=== PATIENT | female | born 1960 | race Caucasian/White ===

== ENCOUNTER 2022-03-09 17:10 | Emergency (ER) | payer SELFPAY ==
[2022-03-09] MEDS ORDERED: Sodium Chloride 0.9% 1000 ML 1,000 ML IV STA (17:32)
[2022-03-09 17:57] LABS: Absolute Neutrophil Ct (ANC) 1.61 x10^3/uL (1.4-6.9); Basophil (Absolute #) 0.03 x10^3/uL (0-0.4); Eosinophil % 4.5 % (0.00-5.0); Eosinophil (Absolute #) 0.22 x10^3/uL (0-0.5); Lymphocyte (Absolute #) 2.39 x10^3/uL (1.0-4.6); Lymphocytes % 48.5 % (24.0-44.0); Mean Cell Volume 102.9 fL (78-100); Mean Corpuscular Hemoglobin 33.5 pg (26-32); Mean Corpuscular Hgb Concent. 32.6 g/dL (32-36); Mean Platelet Volume 9.5 fL (7.5-11.0); Monocyte (Absolute #) 0.67 x10^3/uL (0.0-1.3); Monocytes % 13.6 % (0.0-12.0); Neutrophil % 32.6 % (36.0-66.0); Platelet Count 311 x10^3/uL (150-450); Red Blood Count 4.18 x10^6/uL (4.1-5.4); Red Cell Distribution Width 14.6 % (11.5-14.0); White Blood Count 4.9 x10^3/uL (4.0-10.5)
[2022-03-09 18:23] LABS: ALBUMIN 4.7 g/dL (3.5-5.0); ALKALINE PHOSPHATASE 108 U/L (38-126); AMYLASE 60 U/L (30-110); BLOOD UREA NITROGEN 15 mg/dL (7-17); CHLORIDE 108 mmol/L (98-107); Calcium 8.3 mg/dL (8.4-10.2); Carbon Dioxide 31 mmol/L (22-30); Creatinine 1 0.82 mg/dL (0.52-1.04); EST GLOMERULAR FILTRATION RATE > 60.0 ML/MIN; ETHYL ALCOHOL 383 mg/dL (0-10); Glucose 86 mg/dL (74-106); LIPASE 85 U/L (23-300); MAGNESIUM 2.2 mg/dL (1.6-2.3); NT PRO BNP 629 pg/mL (0-900); Potassium 4.3 mmol/L (3.5-5.1); SGOT/AST 29 U/L (14-36); SGPT/ALT 16 U/L (0-35); SODIUM 146 mmol/L (137-145); TROPONIN < 0.012 ng/mL (0.000-0.034); Total Protein 8.1 g/dL (6.3-8.2)
--- NOTE | 2022-03-09 18:23 | ERPHSYRPT ---
- History of Present Illness Time Seen by Provider: 03/09/22 18:19 Source: patient, EMS Patient Subjective Stated Complaint: PT BROUGHT IN BY AMBULANCE FOR FALL AT HOME TODAY. PT STATES HER A FIB IS ACTING UP , SHE HAS RECENTLY MOVED HERE AND LIVING WITH FAMILY Triage Nursing Assessment: PT ALERT, BUT CONFUSED TO EVENTS, SPEECH SLURRED, SHE STATES SHE ONLY HAD ONE GLASS OF WINE, SHE STATES SHE GOT DIZZY AND SAT ON FLOOR TODAY, SHE IS UNCOOPERATIVE, AND ONT HET UN DRESSED, SHE WAS IN CONT OF STOOL AND HAVING A HARD TIME GETTING PT TO GET UPDRESSED AND CLEANED UP . LEGS SWOLLEN Physician History: Patient is 61-year-old female with significant past medical history of atrial fibrillation hypertension, patient recently moved from [place] to [place]. Patient had a fall and then patient developed slurred speech. Patient is unable to give proper history as patient has also some confusion. No apparent injury visible due to fall. Patient is constantly asking to fix her atrial fibrillation so that she can go home. On the rhythm monitor patient has A. fib with controlled rate around 87. Timing/Duration: today Associated Symptoms: denies symptoms Allergies/Adverse Reactions: Penicillins Allergy (Verified 03/09/22 17:20) Home Medications: Amiodarone HCl 200 mg [Cordarone 200 MG] 200 mg PO DAILY 03/09/22 [History] Apixaban [Eliquis 5 mg Tablet] 5 mg PO BID 03/09/22 [History] Atorvastatin Calcium [Lipitor] 20 mg PO DAILY 03/09/22 [History] Metoprolol Tartrate 25 mg [Lopressor 25MG Tab] 25 mg PO BID 03/09/22 [History] Sertraline HCl 50 mg [Zoloft 50 mg Tablet] 50 mg PO DAILY 03/09/22 [History] Hx Tetanus, Diphtheria Vaccination/Date Given: No Hx Influenza Vaccination/Date Given: No Hx Pneumococcal Vaccination/Date Given: No Immunizations Up to Date: Yes Travel Risk - International Travel Have you traveled outside of the country in past 3 weeks: No - Coronavirus Screening Are you exhibiting any of the following symptoms?: No Close contact with a COVID-19 positive Pt in past 14-21 Days: No - Vaccine Status Have you recieved a Covid-19 vaccination: Yes 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 - Review of Systems Constitutional: Lethargy, Weakness Eyes: No Symptoms Ears, Nose, & Throat: No Symptoms Respiratory: No Cough, No Dyspnea Cardiac: Palpitations, No Chest Pain, No Edema, No Syncope Abdominal/Gastrointestinal: No Abdominal Pain, No Nausea, No Vomiting, No Diarrhea Genitourinary Symptoms: No Dysuria Musculoskeletal: Fall, No Back Pain, No Neck Pain Skin: No Rash Neurological: Irritability, Lethargy, No Dizziness, No Focal Weakness, No Sensory Changes Psychological: No Symptoms Endocrine: No Symptoms All Other Systems: Reviewed and Negative - Past Medical History Pertinent Past Medical History: Yes Cardiac History: Arrhythmia, Hypertension - Past Surgical History Past Surgical History: Yes Musculoskeletal: Orthopedic Surgery Other Surgical History: HIP - Social History Smoking Status: Never smoker Exposure to second hand smoke: No Drug Use: none Patient Lives Alone: No - Nursing Vital Signs Nursing Vital Signs: Initial Vital Signs Temperature 97.2 F 03/09/22 17:21 Pulse Rate 78 03/09/22 17:21 Respiratory Rate 18 03/09/22 17:21 Blood Pressure 117/83 03/09/22 17:21 O2 Sat by Pulse Oximetry 94 L 03/09/22 17:21 Pain Scale Pain Intensity 0 - Physical Exam General Appearance: no apparent distress, alert Eye Exam: PERRL/EOMI, eyes nml inspection Ears, Nose, Throat Exam: normal ENT inspection, TMs normal, pharynx normal, moist mucous membranes Neck Exam: normal inspection, non-tender, supple, full range of motion Respiratory Exam: normal breath sounds, lungs clear, No respiratory distress Cardiovascular Exam: normal heart sounds, normal peripheral pulses, irregular Gastrointestinal/Abdomen Exam: soft, normal bowel sounds, No tenderness, No mass Back Exam: normal inspection, normal range of motion, No CVA tenderness, No vertebral tenderness Extremity Exam: normal inspection, normal range of motion, pelvis stable Neurologic Exam: alert, oriented x 3, president + publisher II-XII nml as tested, sensation nml, confusion, agitation, dysarthria, No motor deficits, No sensory deficit, No disoriented, No depressed mood/affect, No motor weakness Skin Exam: normal color, warm, dry, No rash Lymphatic Exam: No adenopathy SpO2: 94 - Course Nursing assessment & vital signs reviewed: Yes EKG Interpreted by Me: Hemant-fib, Non-specific ST Changes - Radiology Exams Chest X-ray Interpretation: Reviewed by me - CT Exams Head CT Interpretation: Tele-radiologist Report Ordered Tests: Active Orders 24 hr Category Date Time Status EKG-ER Only STAT Care 03/09/22 17:32 Active Oxygen-ED Only Nasal Cannula 2 lpm Care 03/09/22 17:32 Active CHEST 1 VIEW (PORTABLE) Stat Exams 03/09/22 18:09 Taken HEAD WITHOUT CONTRAST [CT] Stat Exams 03/09/22 17:33 Taken AMYLASE Stat Lab 03/09/22 17:53 Completed BLOOD CULTURE Stat Lab 03/09/22 17:55 Received CBC W DIFF Stat Lab 03/09/22 17:53 Completed CMP Stat Lab 03/09/22 17:53 Completed CULTURE,URINE Stat Lab 03/09/22 17:33 Ordered ETHYL ALCOHOL Stat Lab 03/09/22 17:53 Completed LIPASE Stat Lab 03/09/22 17:53 Completed MAGNESIUM Stat Lab 03/09/22 17:53 Completed NT PRO BNP Stat Lab 03/09/22 17:53 Completed TROPONIN Stat Lab 03/09/22 17:53 Completed Medication Summary Discontinued Medications Generic Name Dose Route Start Last Admin Trade Name Freq PRN Reason Stop Dose Admin Sodium Chloride 1,000 mls @ 999 mls/hr 03/09/22 17:32 03/09/22 18:35 Sodium Chloride 0.9% 1000 Ml IV 03/09/22 18:32 999 mls/hr .Q1H1M STA Administration Sodium Chloride Confirm 03/09/22 18:32 Sodium Chloride 0.9% 1000 Ml Administered 03/09/22 18:33 Dose 1,000 mls @ ud .ROUTE .STK-MED ONE Lab/Rad Data: Laboratory Result Diagrams 03/09/22 17:53 03/09/22 17:53 Laboratory Results 03/09/22 03/09/22 Range/Units 17:53 17:53 WBC 4.9 (4.0-10.5) x10^3/uL RBC 4.18 (4.1-5.4) x10^6/uL Hgb 14.0 (12.0-16.0) g/dL Hct 43.0 (35-47) % MCV 102.9 H (78-100) fL MCH 33.5 H (26-32) pg MCHC 32.6 (32-36) g/dL RDW 14.6 H (11.5-14.0) % Plt Count 311 (150-450) x10^3/uL MPV 9.5 (7.5-11.0) fL Gran % 32.6 L (36.0-66.0) % Immature Gran % (Auto) 0.2 (0.00-0.4) % Nucleat RBC Rel Count 0.0 (0.00-0.1) % Eos # (Auto) 0.22 (0-0.5) x10^3/uL Immature Gran # (Auto) 0.01 (0.00-0.03) x10^3u/L Absolute Lymphs (auto) 2.39 (1.0-4.6) x10^3/uL Absolute Monos (auto) 0.67 (0.0-1.3) x10^3/uL Absolute Nucleated RBC 0.00 (0.00-0.01) x10^3u/L Lymphocytes % 48.5 H (24.0-44.0) % Monocytes % 13.6 H (0.0-12.0) % Eosinophils % 4.5 (0.00-5.0) % Basophils % 0.6 (0.0-0.4) % Absolute Granulocytes 1.61 (1.4-6.9) x10^3/uL Basophils # 0.03 (0-0.4) x10^3/uL Sodium 146 H (137-145) mmol/L Potassium 4.3 (3.5-5.1) mmol/L Chloride 108 H (98-107) mmol/L Carbon Dioxide 31 H (22-30) mmol/L Anion Gap 11.0 (5-15) MEQ/L BUN 15 (7-17) mg/dL Creatinine 0.82 (0.52-1.04) mg/dL Estimated GFR > 60.0 ML/MIN Glucose 86 (74-106) mg/dL Calcium 8.3 L (8.4-10.2) mg/dL Magnesium 2.2 (1.6-2.3) mg/dL Total Bilirubin 0.40 (0.2-1.3) mg/dL AST 29 (14-36) U/L ALT 16 (0-35) U/L Alkaline Phosphatase 108 (38-126) U/L Troponin I < 0.012 (0.000-0.034) ng/mL NT-Pro-B Natriuret Pep 629 (0-900) pg/mL Serum Total Protein 8.1 (6.3-8.2) g/dL Albumin 4.7 (3.5-5.0) g/dL Amylase 60 (30-110) U/L Lipase 85 (23-300) U/L Ethyl Alcohol 383 H (0-10) mg/dL - Progress Progress: improved Counseled pt/family regarding: drug and/or alcohol abuse, lab results, diagnosi s, need for follow-up, rad results - Departure Departure Disposition: Home Clinical Impression: Atrial fibrillation Alcohol intoxication Qualifiers: Complication of substance-induced condition: uncomplicated Qualified Code(s): F10.920 - Alcohol use, unspecified with intoxication, uncomplicated Condition: Stable Critical Care Time: Yes Critical Care Time(excluding separately billable procedures): Critical 30-74 mins Referrals: DOCTOR,NO FAMILY [Primary Care Provider] - Follow Up with PCP/3 days Instructions: Preventing Falls in Older Adults, Alcohol Use Disorder (DC), Alcohol Use - When Is Drinking a Problem? Additional Instructions: Discharge/Care Plan CAROLA CASH was seen on 03/09/22 in the Emergency Room. The patient was counseled regarding Diagnosis,Lab results, Imaging studies, need for follow up and when to return to the Emergency Room. Prescriptions given: Discharge Note I have spoken with the patient and/or caregivers. I have explained the patient's condition, diagnosis and treatment plan based on the information available to me at this time. I have answered the patient's and/or caregiver's questions and addressed any concerns. The patient and/or caregivers have as good understanding of the patient's diagnosis, condition and treatment plan as can be expected at this point. The vital signs have been stable. The patient's condition is stable and appropriate for discharge from the emergency department. The patient will pursue further outpatient evaluation with the primary care physician or other designated or consulting physician as outlined in the discharge instructions. The patient and/or caregivers are agreeable to this plan of care and follow-up instructions have been explained in detail. The patient and/or caregivers have received these instruction. The patient/and or caregivers are aware that any significant change in condition or worsening of symptoms should prompt an immediate return to this or the closest emergency department or call 911. CAROLA CASH was seen on 03/09/22 n the Emergency Room. At that time you were treated for an emergent condition, during your visit Laboratory, Radiology and/or other procedures may have been ordered. It is very important that you follow-up with your Primary Care Physician NO FAMILY DOCTOR within the next 24- 48 hours to review your Emergency Room visit and the final results of testing that was ordered. Some test results such as Urine Cultures, Blood Cultures, and other cultures if ordered will not be finalized for 24-48 hours. If you do not have a Primary Care Provider please call the medical records department at [phone] ext [phone] to obtain a copy of your results or you may sign into our patient portal to obtain these results by visiting us @ [email or web address] and completing the following steps: 1. Click on the Patient Portal link 2. Click the Patient Self Enrollment Link to complete the enrollment form and entering your 3. Once the enrollment form is completed you will receive an email with a temporary ID and password at the email address you provided. 4. Next choose a user name and password. Your user name must be at least 4 characters long and your password must be at least 4 characters long. 5. Choose a security question from the list and provide your answer to the question. If you already have signed into the Health Portal you may access your Health Care Information 17/11 by the following steps: 1. Login to our website @ [email or web address] 2. Enter your original user name and password. FAQS The [facility] Health Portal is an online tool that contains your Lab Results, Radiology Reports, Visit History, Discharge Instructions and Health Summary Lab and Radiology Results will not be available for 72 hours on the portal. The Portal is a secure site, passwords are encryted and URLs are re-written so they cannot be copied and pasted. You and authorized family members are the only ones who can access your Portal. Also there is a timeout feature that protects your information if you leave the Portal page open. If you have technical difficulty please use the Contact Us link on the page this will allow you to submit any questions you have regarding the Portal or you may contact the Medical Record Department at [phone] ext [phone].
[2022-03-09] MEDS ORDERED: Sodium Chloride 0.9% 1000 ML 1,000 ML ONE (18:32)
[2022-03-09 19:45] VITALS: BP 120/84; PULSE 82; O2SAT 98
--- NOTE | 2022-03-10 08:44 | XRAY ---
Indication: Confusion. Status post fall. Comparison: None Portable chest hyperinflated and clear. Heart is not enlarged and bony thorax intact with osteopenia, mild multilevel degenerative spondylosis, mild levoscoliosis centered at T12, and right humeral shaft enchondromas. Impression: Nonacute chest with chronic features.
--- NOTE | 2022-03-10 08:46 | XRAY ---
Indication: Confusion. Blood thinner therapy. Multiple contiguous axial images obtained through the head without contrast. Comparison: None Age-appropriate global atrophy. No acute intracranial hemorrhage, abnormal extra-axial fluid collection, or mass effect. Fourth ventricle is midline without hydrocephalus. Lo-white matter differentiation preserved. Bony calvarium intact. Mild mucosal thickening both ethmoid and tiny fluid leveling left maxillary sinuses. Mastoid air cells are clear. Impression: Paranasal sinus disease. Remaining CT head without contrast exam is negative. Comment: Preliminary interpretation made by [facility]. No critical discrepancy.
== END 2022-03-09 19:41 | disposition home or self-care (01) ==
LOC: ED 17:10
DX: I48.91 Unspecified atrial fibrillation (principal); F10.920 Alcohol use, unspecified with intoxication, uncomplicated; Y90.8 Blood alcohol level of 240 mg/100 ml or more; R41.0 Disorientation, unspecified; R47.81 Slurred speech; I10 Essential (primary) hypertension; Z79.01 Long term (current) use of anticoagulants; Z79.899 Other long term (current) drug therapy
CPT/HCPCS: 36415; 70450; 71045; 80053; 80307; 82150; 83690; 83735; 83880; 84484; 85025; 87040; 93005; 99283; 99291; G0480

== ENCOUNTER 2022-03-13 15:31 | Observation (INO) | payer SELFPAY ==
[2022-03-13 15:57] LABS: Absolute Neutrophil Ct (ANC) 2.54 x10^3/uL (1.4-6.9); Basophil (Absolute #) 0.02 x10^3/uL (0-0.4); Eosinophil % 1.8 % (0.00-5.0); Eosinophil (Absolute #) 0.09 x10^3/uL (0-0.5); Hematocrit 42.6 % (35-47); Hemoglobin 13.9 g/dL (12.0-16.0); Lymphocyte (Absolute #) 1.86 x10^3/uL (1.0-4.6); Lymphocytes % 37.9 % (24.0-44.0); Mean Cell Volume 100.7 fL (78-100); Mean Corpuscular Hemoglobin 32.9 pg (26-32); Mean Corpuscular Hgb Concent. 32.6 g/dL (32-36); Mean Platelet Volume 9.1 fL (7.5-11.0); Monocyte (Absolute #) 0.39 x10^3/uL (0.0-1.3); Monocytes % 7.9 % (0.0-12.0); Neutrophil % 51.8 % (36.0-66.0); Platelet Count 322 x10^3/uL (150-450); Red Blood Count 4.23 x10^6/uL (4.1-5.4); Red Cell Distribution Width 14.2 % (11.5-14.0); White Blood Count 4.9 x10^3/uL (4.0-10.5)
[2022-03-13 16:16] LABS: ACETAMINOPHEN < 10 ug/ml (10-30); ALBUMIN 4.4 g/dL (3.5-5.0); ALKALINE PHOSPHATASE 94 U/L (38-126); ANION GAP 17.7 MEQ/L (5-15); BLOOD UREA NITROGEN 15 mg/dL (7-17); CHLORIDE 109 mmol/L (98-107); Calcium 8.2 mg/dL (8.4-10.2); Carbon Dioxide 20 mmol/L (22-30); Creatinine 1 1.55 mg/dL (0.52-1.04); EST GLOMERULAR FILTRATION RATE 36.4 ML/MIN; ETHYL ALCOHOL 285 mg/dL (0-10); Glucose 138 mg/dL (74-106); SALICYLATE < 1.0 mg/dL (2-20); SGOT/AST 22 U/L (14-36); SGPT/ALT 15 U/L (0-35); SODIUM 143 mmol/L (137-145); Total Protein 7.3 g/dL (6.3-8.2)
[2022-03-13] MEDS ORDERED: Sodium Chloride 0.9% 1000 ML 1,000 ML IV STA (16:39)
[2022-03-13] MEDS ORDERED: Sodium Chloride 0.9% 1000 ML 1,000 ML ONE (17:04)
[2022-03-13 20:28] LABS: Appearance CLEAR (CLEAR); Bilirubin NEGATIVE (NEGATIVE); Glucose NEGATIVE (NEGATIVE); Ketones NEGATIVE (NEGATIVE); Specific Gravity >=1.030 (1.005-1.025)
[2022-03-13 20:29] LABS: Dipstick done @ ? MAIN LAB; Nitrite NEGATIVE (NEGATIVE); Ph 5.5 (5-6); Protein,Urine Dip NEGATIVE (Negative); RBC TRACE-INTACT Ery/ul (0-5); Urobilinogen 0.2 mg/dL (0-1)
[2022-03-13 20:31] LABS: Mucus SLIGHT /HPF (NEGATIVE); WBC 0-2 /HPF (0-5)
[2022-03-13 20:42] LABS: Urine Cultured Indicated? NO
[2022-03-13 20:45] LABS: Amphetamine,Urine NEGATIVE (NEGATIVE); Barbiturate,Urine NEGATIVE (NEGATIVE); Benzodiazepine,Urine NEGATIVE (NEGATIVE); Cocaine,Urine NEGATIVE (NEGATIVE); Methadone,Urine NEGATIVE (NEGATIVE); Opiate,Urine NEGATIVE (NEGATIVE); PCP,Urine NEGATIVE (NEGATIVE); THC,Urine NEGATIVE (NEGATIVE)
--- NOTE | 2022-03-13 20:49 | ERPHSYRPT ---
- History of Present Illness Time Seen by Provider: 03/13/22 15:38 Source: patient Exam Limitations: no limitations Patient Subjective Stated Complaint: pt here for possible alcohol treatment, the family she is staying with states they believe she is drinking a lot, they b jefferye she is depressed, she has had lots deaths in her family last year, Triage Nursing Assessment: pt alert, oriented, but states she is fine on second and then states she states she is depressed and wants to go to rehab,she has flight of ideas,deneis being suicidal or homicidal. skin w/d/p. abd soft resp easy Physician History: 61 years old female with history of atrial fibrillation on Eliquis, anxiety, depression, alcohol abuse presented in the ER with chief complaint of worsening depressive symptoms and increased alcohol consumption. Patient apparently staying with some family members and has been drinking heavily. She wants to go for rehab. Patient reports lately having worsening of depressive symptoms because no one likes her and she has no place to live. She wants to go back to [place] but has no means to go there. She denies any suicidal or homicidal ideations. Denies any previous hospitalization. Patient reports she has been drinking heavily because she has lost multiple family members last year and she is trying to calm herself with drinking. Timing/Duration: week(s), gradual onset, worse Severity of Symptoms-Max: moderate Severity of Symptoms-Current: moderate Context related to: recent , living circumstances Associated Symptoms: anxiety, depressed Previous symptoms: same symptoms as today Allergies/Adverse Reactions: Penicillins Allergy (Verified 03/13/22 15:58) Home Medications: Amiodarone HCl 200 mg [Cordarone 200 MG] 200 mg PO DAILY 03/09/22 [History] Apixaban [Eliquis 5 mg Tablet] 5 mg PO BID 03/09/22 [History] Atorvastatin Calcium [Lipitor] 20 mg PO DAILY 03/09/22 [History] Metoprolol Tartrate 25 mg [Lopressor 25MG Tab] 25 mg PO BID 03/09/22 [History] Sertraline HCl 50 mg [Zoloft 50 mg Tablet] 50 mg PO DAILY 03/09/22 [History] Hx Tetanus, Diphtheria Vaccination/Date Given: No Hx Influenza Vaccination/Date Given: No Hx Pneumococcal Vaccination/Date Given: No Immunizations Up to Date: Yes Travel Risk - International Travel Have you traveled outside of the country in past 3 weeks: No - Coronavirus Screening Are you exhibiting any of the following symptoms?: No Close contact with a COVID-19 positive Pt in past 14-21 Days: No - Vaccine Status Have you recieved a Covid-19 vaccination: Yes Pcts: Unknown - Vaccination Dates Date of 2cond Vaccination (if applicable): 2020 if Unknown: ? - Past Medical History Pertinent Past Medical History: Yes Cardiac History: Arrhythmia, Hypertension - Past Surgical History Past Surgical History: Yes Musculoskeletal: Orthopedic Surgery Other Surgical History: HIP - Social History Smoking Status: Former smoker Exposure to second hand smoke: No Drug Use: none Patient Lives Alone: No - Review of Systems Constitutional: Fatigue Eyes: No Symptoms Ears, Nose, & Throat: No Symptoms Respiratory: No Symptoms Cardiac: No Symptoms Abdominal/Gastrointestinal: No Symptoms Genitourinary Symptoms: No Symptoms Musculoskeletal: No Symptoms Skin: No Symptoms Neurological: No Symptoms Psychological: Alcohol Abuse, Anxiety, Depression Endocrine: No Symptoms Hematologic/Lymphatic: No Symptoms Immunological/Allergic: No Symptoms - Nursing Vital Signs Nursing Vital Signs: Initial Vital Signs Temperature 97.1 F 03/13/22 15:49 Pulse Rate 71 03/13/22 15:49 Respiratory Rate 18 03/13/22 15:49 Blood Pressure 104/65 03/13/22 15:49 O2 Sat by Pulse Oximetry 95 03/13/22 15:49 Pain Scale Pain Intensity 0 - Physical Exam General Appearance: no apparent distress, alert Eyes, Ears, Nose, Throat Exam: normal ENT inspection Neck Exam: normal inspection, non-tender, supple, full range of motion Respiratory Exam: normal breath sounds, lungs clear Cardiovascular Exam: normal heart sounds, irregular Gastrointestinal/Abdominal Exam: soft, No tenderness Extremities Exam: normal inspection, normal range of motion Current Suicidality: denies suicide plan Neurological Exam: alert, automatic pattern edger II-XII nml as tested, oriented x 3, No normal mood/affect (Anxious) Appearance: appropriate appearance, appropriate insight Behavior/Eye Contact/Speech: alert & cooperative Thoughts/Hallucinations: no apparent hallucination Skin Exam: normal color SpO2 Interpretation: normal SpO2: 97 O2 Delivery: Room Air Ordered Tests: Active Orders 24 hr Category Date Time Status ACETAMINOPHEN Stat Lab 03/13/22 15:58 Completed CBC W DIFF Stat Lab 03/13/22 15:58 Completed CMP Stat Lab 03/13/22 15:58 Completed ETHYL ALCOHOL Stat Lab 03/13/22 15:58 Completed SALICYLATE Stat Lab 03/13/22 15:58 Completed UA W/RFX CULTURE Stat Lab 03/13/22 20:20 Completed Urine Triage Profile Stat Lab 03/13/22 20:20 Completed Transfer Order Routine Transfer 03/13/22 Ordered Medication Summary Discontinued Medications Generic Name Dose Route Start Last Admin Trade Name Sunny PRN Reason Stop Dose Admin Sodium Chloride 1,000 mls @ 999 mls/hr 03/13/22 16:39 03/13/22 18:43 Sodium Chloride 0.9% 1000 Ml IV 03/13/22 17:39 Infused .Q1H1M STA Infusion Sodium Chloride Confirm 03/13/22 17:04 Sodium Chloride 0.9% 1000 Ml Administered 03/13/22 17:05 Dose 1,000 mls @ ud .ROUTE .STK-MED ONE Lab/Rad Data: Laboratory Result Diagrams 03/13/22 15:58 03/13/22 15:58 Laboratory Results 03/13/22 03/13/22 03/13/22 Range/Units 20:20 20:20 15:58 WBC (4.0-10.5) x10^3/uL RBC (4.1-5.4) x10^6/uL Hgb (12.0-16.0) g/dL Hct (35-47) % MCV (78-100) fL MCH (26-32) pg MCHC (32-36) g/dL RDW (11.5-14.0) % Plt Count (150-450) x10^3/uL MPV (7.5-11.0) fL Gran % (36.0-66.0) % Immature Gran % (Auto) (0.00-0.4) % Nucleat RBC Rel Count (0.00-0.1) % Eos # (Auto) (0-0.5) x10^3/uL Immature Gran # (Auto) (0.00-0.03) x10^3u/L Absolute Lymphs (auto) (1.0-4.6) x10^3/uL Absolute Monos (auto) (0.0-1.3) x10^3/uL Absolute Nucleated RBC (0.00-0.01) x10^3u/L Lymphocytes % (24.0-44.0) % Monocytes % (0.0-12.0) % Eosinophils % (0.00-5.0) % Basophils % (0.0-0.4) % Absolute Granulocytes (1.4-6.9) x10^3/uL Basophils # (0-0.4) x10^3/uL Sodium 143 (137-145) mmol/L Potassium 4.0 (3.5-5.1) mmol/L Chloride 109 H (98-107) mmol/L Carbon Dioxide 20 L (22-30) mmol/L Anion Gap 17.7 H (5-15) MEQ/L BUN 15 (7-17) mg/dL Creatinine 1.55 H (0.52-1.04) mg/dL Estimated GFR 36.4 ML/MIN Glucose 138 H (74-106) mg/dL Calcium 8.2 L (8.4-10.2) mg/dL Total Bilirubin 0.40 (0.2-1.3) mg/dL AST 22 (14-36) U/L ALT 15 (0-35) U/L Alkaline Phosphatase 94 (38-126) U/L Serum Total Protein 7.3 (6.3-8.2) g/dL Albumin 4.4 (3.5-5.0) g/dL Urinalys Dipstick Clnc MAIN LAB Urine Color YELLOW (YELLOW) Urine Appearance CLEAR (CLEAR) Urine pH 5.5 (5-6) Ur Specific Yale >=1.030 A (1.005-1.025) POC Urine Protein Conf NEGATIVE (Negative) Urine Ketones NEGATIVE (NEGATIVE) Urine Nitrite NEGATIVE (NEGATIVE) Urine Bilirubin NEGATIVE (NEGATIVE) Urine Urobilinogen 0.2 (0-1) mg/dL Urine Leukocytes NEGATIVE (NEGATIVE) Urine WBC (Auto) 0-2 (0-5) /HPF Urine RBC (Auto) Not Reportable U Hyaline Cast (Auto) 11-25 A (0-2) /LPF U Epithel Cells (Auto) NONE (FEW) /HPF Urine Bacteria (Auto) NONE (NEGATIVE) /HPF Urine RBC TRACE-INTACT A (0-5) Kleber/ul Urine Mucus (Auto) SLIGHT A (NEGATIVE) /HPF Ur Culture Indicated? NO Urine Glucose NEGATIVE (NEGATIVE) mg/dL Salicylates < 1.0 L (2-20) mg/dL Urine Opiates Level NEGATIVE (NEGATIVE) Ur Methadone NEGATIVE (NEGATIVE) Acetaminophen < 10 L (10-30) ug/ml Urine Barbiturates NEGATIVE (NEGATIVE) Ur Phencyclidine (PCP) NEGATIVE (NEGATIVE) Urine Amphetamine NEGATIVE (NEGATIVE) U Benzodiazepine Level NEGATIVE (NEGATIVE) Urine Cocaine NEGATIVE (NEGATIVE) Urine Marijuana (THC) NEGATIVE (NEGATIVE) Ethyl Alcohol 285 H (0-10) mg/dL 03/13/22 Range/Units 15:58 WBC 4.9 (4.0-10.5) x10^3/uL RBC 4.23 (4.1-5.4) x10^6/uL Hgb 13.9 (12.0-16.0) g/dL Hct 42.6 (35-47) % MCV 100.7 H (78-100) fL MCH 32.9 H (26-32) pg MCHC 32.6 (32-36) g/dL RDW 14.2 H (11.5-14.0) % Plt Count 322 (150-450) x10^3/uL MPV 9.1 (7.5-11.0) fL Gran % 51.8 (36.0-66.0) % Immature Gran % (Auto) 0.2 (0.00-0.4) % Nucleat RBC Rel Count 0.0 (0.00-0.1) % Eos # (Auto) 0.09 (0-0.5) x10^3/uL Immature Gran # (Auto) 0.01 (0.00-0.03) x10^3u/L Absolute Lymphs (auto) 1.86 (1.0-4.6) x10^3/uL Absolute Monos (auto) 0.39 (0.0-1.3) x10^3/uL Absolute Nucleated RBC 0.00 (0.00-0.01) x10^3u/L Lymphocytes % 37.9 (24.0-44.0) % Monocytes % 7.9 (0.0-12.0) % Eosinophils % 1.8 (0.00-5.0) % Basophils % 0.4 (0.0-0.4) % Absolute Granulocytes 2.54 (1.4-6.9) x10^3/uL Basophils # 0.02 (0-0.4) x10^3/uL Sodium (137-145) mmol/L Potassium (3.5-5.1) mmol/L Chloride (98-107) mmol/L Carbon Dioxide (22-30) mmol/L Anion Gap (5-15) MEQ/L BUN (7-17) mg/dL Creatinine (0.52-1.04) mg/dL Estimated GFR ML/MIN Glucose (74-106) mg/dL Calcium (8.4-10.2) mg/dL Total Bilirubin (0.2-1.3) mg/dL AST (14-36) U/L ALT (0-35) U/L Alkaline Phosphatase (38-126) U/L Serum Total Protein (6.3-8.2) g/dL Albumin (3.5-5.0) g/dL Urinalys Dipstick Clnc Urine Color (YELLOW) Urine Appearance (CLEAR) Urine pH (5-6) Ur Specific Yale (1.005-1.025) POC Urine Protein Conf (Negative) Urine Ketones (NEGATIVE) Urine Nitrite (NEGATIVE) Urine Bilirubin (NEGATIVE) Urine Urobilinogen (0-1) mg/dL Urine Leukocytes (NEGATIVE) Urine WBC (Auto) (0-5) /HPF Urine RBC (Auto) U Hyaline Cast (Auto) (0-2) /LPF U Epithel Cells (Auto) (FEW) /HPF Urine Bacteria (Auto) (NEGATIVE) /HPF Urine RBC (0-5) Kleber/ul Urine Mucus (Auto) (NEGATIVE) /HPF Ur Culture Indicated? Urine Glucose (NEGATIVE) mg/dL Salicylates (2-20) mg/dL Urine Opiates Level (NEGATIVE) Ur Methadone (NEGATIVE) Acetaminophen (10-30) ug/ml Urine Barbiturates (NEGATIVE) Ur Phencyclidine (PCP) (NEGATIVE) Urine Amphetamine (NEGATIVE) U Benzodiazepine Level (NEGATIVE) Urine Cocaine (NEGATIVE) Urine Marijuana (THC) (NEGATIVE) Ethyl Alcohol (0-10) mg/dL - Progress Progress: improved Progress Note: 03/13/22 20:47 61-year-old is evaluated for worsening depressive symptoms and alcohol abuse. Patient blood alcohol is 285 and chemistries consistent with dehydration, given fluids. She also has worsening of renal functions with baseline creatinine of 1.8 and today 1.5. Patient cannot be medically cleared. Discussed with Dr. Torres, reviewed history, work-up and patient is okay to be observed in the hospital and once medically clear with her low blood alcohol can be appropriate for behavioral health consultation. Discussed with : Emliiano Will see patient in: hospital (observation) Counseled pt/family regarding: lab results, diagnosis, need for follow-up - Departure Departure Disposition: Home Clinical Impression: Alcohol abuse, Major depressive disorder, Atrial fibrillation Condition: Stable Critical Care Time: No Referrals: DOCTOR,NO FAMILY [Primary Care Provider] - Follow up/PCP as directed
[2022-03-13] MEDS ORDERED: TYLENOL 325 MG PO STA (21:15)
[2022-03-13] MEDS ORDERED: TYLENOL 325 MG ONE (21:16)
[2022-03-13 21:29] LABS: INFLUENZA A NEGATIVE (NEGATIVE); INFLUENZA B NEGATIVE (NEGATIVE); RESPIRATORY SYNCTIAL VIRUS NEGATIVE (Negative); SARS-CoV-2 Xpert Express NEGATIVE (NEGATIVE)
[2022-03-13] MEDS ORDERED: TORAdol 30 mg Injection IV PRN (22:14)
[2022-03-13] MEDS ORDERED: DUONEB 0.5-3 MG/3 ml Neb IH PRN (22:14)
[2022-03-13] MEDS ORDERED: TYLENOL 325 MG PO PRN (22:14)
[2022-03-13] MEDS ORDERED: Zofran 4 MG/2 ML VIAL IV PRN (22:14)
[2022-03-13] MEDS: Sodium Chloride 0.9% 1000 ML 1,000 ML IV SCH (23:42)
[2022-03-14] MEDS: Sodium Chloride 0.9% 1000 ML 1,000 ML IV SCH ×3 (00:06→15:00)
[2022-03-14 04:55] LABS: Absolute Neutrophil Ct (ANC) 2.31 x10^3/uL (1.4-6.9); Basophil (Absolute #) 0.03 x10^3/uL (0-0.4); Eosinophil % 3.9 % (0.00-5.0); Eosinophil (Absolute #) 0.19 x10^3/uL (0-0.5); Hematocrit 35.4 % (35-47); Hemoglobin 11.9 g/dL (12.0-16.0); Lymphocyte (Absolute #) 1.72 x10^3/uL (1.0-4.6); Lymphocytes % 35.2 % (24.0-44.0); Mean Cell Volume 99.7 fL (78-100); Mean Corpuscular Hemoglobin 33.5 pg (26-32); Mean Corpuscular Hgb Concent. 33.6 g/dL (32-36); Mean Platelet Volume 9.5 fL (7.5-11.0); Monocyte (Absolute #) 0.62 x10^3/uL (0.0-1.3); Monocytes % 12.7 % (0.0-12.0); Neutrophil % 47.4 % (36.0-66.0); Platelet Count 267 x10^3/uL (150-450); Red Blood Count 3.55 x10^6/uL (4.1-5.4); Red Cell Distribution Width 14.4 % (11.5-14.0); White Blood Count 4.9 x10^3/uL (4.0-10.5)
[2022-03-14 05:21] LABS: ANION GAP 8.5 MEQ/L (5-15); BLOOD UREA NITROGEN 13 mg/dL (7-17); CHLORIDE 107 mmol/L (98-107); Calcium 7.7 mg/dL (8.4-10.2); Carbon Dioxide 24 mmol/L (22-30); Creatinine 1 0.64 mg/dL (0.52-1.04); EST GLOMERULAR FILTRATION RATE > 60.0 ML/MIN; Glucose 98 mg/dL (74-106); Potassium 4.1 mmol/L (3.5-5.1); SODIUM 135 mmol/L (137-145)
[2022-03-14] MEDS ORDERED: Cordarone 200 MG PO SCH (10:00)
[2022-03-14] MEDS ORDERED: NON-FORMULARY ITEM (Cetirizine Hcl [Allergy Relief] 10 MG Capsule) PO SCH (10:00)
[2022-03-14] MEDS ORDERED: PROTONIX 40 MG IV IV SCH (10:00)
[2022-03-14] MEDS ORDERED: ZOLOFT 50 MG TABLET PO SCH (10:00)
[2022-03-14] MEDS ORDERED: Lopressor 25MG Tab PO SCH (10:00)
[2022-03-14] MEDS ORDERED: ELIQUIS 2.5 MG TABLET PO SCH (10:00)
[2022-03-14] MEDS ORDERED: CLARITIN 10 MG PO SCH (10:00)
[2022-03-14] MEDS ORDERED: NON-FORMULARY ITEM (Apixaban*** [Eliquis 5 Mg Tablet***] 5 MG Tablet) PO SCH (10:00)
[2022-03-14 11:39] VITALS: O2SAT 96
[2022-03-14 16:55] VITALS: BP 146/89; PULSE 72
[2022-03-14] MEDS ORDERED: ZOCOR 20MG PO SCH (22:00)
[2022-03-14] MEDS ORDERED: NON-FORMULARY ITEM (Atorvastatin Calcium [Lipitor] 20 MG Tablet) PO SCH (22:00)
== END 2022-03-14 18:10 ==
LOC: ED 15:31 → MED SURG 22:06
PROVIDERS: ADMIT Family Medicine; ATTEND Family Medicine
DX: F10.129 Alcohol abuse with intoxication, unspecified (principal); F41.8 Other specified anxiety disorders; I48.91 Unspecified atrial fibrillation; Z79.01 Long term (current) use of anticoagulants; Z79.899 Other long term (current) drug therapy; Z20.828 Contact with and (suspected) exposure to other viral communicable diseases
CPT/HCPCS: 0241U; 36415; 80048; 80053; 80307; 81015; 85025; 96360; 99284; 93268; J1885; A9270-GY; G0378; G0480